=== PATIENT | female | born 1990 | race Caucasian/White ===

== ENCOUNTER 2017-10-08 21:20 | Emergency (ER) | payer BC ==
[~2017-10-08] VITALS: Ht 165.1 cm; Wt 61.0 kg
[~2017-10-08 21:20] MED LIST: PRENTAB26 PO
[2017-10-08 21:31] VITALS: TEMP 36.8; Ht 165.1 cm; Wt 61.0 kg
[2017-10-08 22:10] LABS: URINE APPEARANCE CLEAR (CLEAR); URINE BILIRUBIN NEG (NEG); URINE COLOR YELLOW; URINE EPITHELIAL CELL AUTO >30 /lpf (0-5); URINE NITRITE NEG (NEG); URINE PH 5.5 (4.5-7.5); URINE SPECIFIC GRAVITY 1.026 (1.000-1.030); UROBILINOGEN NEG (NEG); ZZUR CULT IF INDIC CLEAN CATCH YES
[2017-10-08 22:12] LABS: MANUAL MICROSCOPIC REQUIRED? NO; REVIEW REQ? YES
--- NOTE | 2017-10-08 22:15 | EMERGENCY ROOM VISIT NOTE ---
History First contact with patient: 21:33 Chief Complaint: BACK PAIN Stated Complaint: BACK PAIN, KIDNEY PAIN History of Present Illness The patient is a 27 year old female who presents to the Emergency Room with complaints of low back pain 1 month, worsening over the past few days. The patient states that she has had mild, intermittent left lower back pain 1 month. It has been worsening for the past 2 days. She states it is a throbbing pain and rates it an 8/10. The pain has been worsening throughout the day. She states it is worse with all movement as well as standing. Denies any alleviating factors. She does report a history of kidney stones but states this is not similar. 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 She denies any history of back problems. She states the pain is to the left of the lumbar spine. She has had some radiation into the left groin and hip, but none at this time. She denies any numbness or weakness of her lower extremities. She denies any urinary symptoms. She denies any abdominal pain, nausea or vomiting. She has taken ibuprofen intermittently for pain. Review of Systems A complete 10 point review of systems was reviewed with the patient with pertinent positives and negatives as per history of present illness. All else were negative. Past Medical/Surgical History Medical Problems: (1) Social History Smoking Status: Never Smoker Housing Status: lives with family Occupation Status: employed Current/Historical Medications Scheduled Cyclobenzaprine Hcl (Flexeril), 10 MG PO TID Multivit/Min/Iron/Fol Ac/Pren ( Vitamin), 1 TAB PO DAILY Naproxen (Naprosyn), 500 MG PO BID Physical Exam Vital Signs Date Time Temp Pulse Resp B/P (MAP) Pulse Ox O2 Delivery O2 Flow Rate FiO2 10/08/17 23:14 71 18 116/72 98 Room Air 10/08/17 21:31 36.8 89 20 143/83 99 Room Air Physical Exam VITALS: Vitals are noted on the nurse's note and reviewed by myself. Vital signs stable. GENERAL: This is a 27-year-old female, in no acute distress, nondiaphoretic, well-developed well-nourished. SKIN: The skin was without rashes. HEART: Regular rate and rhythm without murmurs gallops or rubs. LUNGS: Clear to auscultation bilaterally without wheezes, rales or rhonchi. ABDOMEN: Positive bowel sounds x 4. Soft, nontender. MUSCULOSKELETAL: There is tenderness to palpation left of the lumbar spine. Full range of motion and strength 5/5 in bilateral lower extremities. NEURO: Patient was alert and oriented to person place and time. Normal sensation to light and sharp touch. Patellar reflexes 2+ bilaterally. Medical Decision & Procedures ER Provider Diagnostic Interpretation: L-SPINE MIN 4 VIEWS ROUTINE FINDINGS: No scoliosis. Straightening of normal lumbar lordosis likely positional. Vertebral bodies maintain normal height and alignment. Intervertebral disc spaces maintained. No pars defects. No radiographic evidence of fracture or subluxation. No gross evidence of osseous neural foraminal narrowing. Nonobstructive bowel gas pattern with moderate stool burden in the right colon. Intrauterine device projects over the pelvis. IMPRESSION: No radiographic evidence of acute osseous injury of the lumbar spine. Laboratory Results Test 10/08/17 21:50 Urine Color YELLOW Urine Appearance CLEAR (CLEAR) Urine pH 5.5 (4.5-7.5) Urine Specific [place] 1.026 (1.000-1.030) Urine Protein NEG (NEG) Urine Glucose (UA) NEG (NEG) Urine Ketones NEG (NEG) Urine Occult Blood 2+ (NEG) Urine Nitrite NEG (NEG) Urine Bilirubin NEG (NEG) Urine Urobilinogen NEG (NEG) Urine Leukocyte Esterase TRACE (NEG) Urine WBC (Auto) 1-5 /hpf (0-5) Urine RBC (Auto) 5-10 /hpf (0-4) Urine Hyaline Casts (Auto) 1-5 /lpf (0-5) Urine Epithelial Cells (Auto) >30 /lpf (0-5) Urine Bacteria (Auto) NEG (NEG) Urine Crystals CALCIUM OXALATE (NONE Urine Yeast (Auto) (NONE PRSENT) Urine Test NEG (NEG) Medications Administered Medications (Trade) Dose Ordered Sig/Ld Route Start Time Stop Time Status Last Admin Dose Admin Cyclobenzaprine HCl (FLEXERIL 10MG Home Pack) 1 homepack UD ONCE PO 10/08/17 23:15 10/08/17 23:16 DC 10/08/17 23:27 1 HOMEPACK Medical Decision Differential diagnosis includes cauda equina syndrome, cord compression, disc herniation, muscle spasm, lumbar strain, epidural abscess, malignancy, transverse myelitis, urinary tract infection, colitis, diverticulitis, kidney stone, among others. The patient is a 27-year-old female who presents today complaining of low back pain worsening over the past one month. Lumbar spine x-rays were performed and were negative. Patient has no radicular symptoms, numbness/weakness or bowel or bladder dysfunction. She is afebrile and has no urinary symptoms. Urine did show some blood, however the patient is due to start her menstrual period. There were some calcium oxalate stones which could represent kidney stones, however patient's pain does not radiate into the abdomen and she has no nausea or vomiting to suggest a stone. I recommended a course of anti-inflammatories and close follow-up with the PCP. If her symptoms worsen or if she would develop vomiting, abdominal pain or urinary symptoms, she was encouraged to return here for evaluation. Conservative measures were discussed. Based on the patient's presentation and work up, I feel the patient is stable for outpatient treatment. The patient was educated to return to the emergency department for any worsening of their current condition or new/concerning symptoms. She will follow up with her PCP. Medication Reconcilliation Current Medication List: was personally reviewed by me Blood Pressure Screening Patient's blood pressure: Normal blood pressure Impression Primary Impression: Lumbar back pain Departure Information Dispostion Home / Self-Care Condition GOOD Prescriptions Naproxen (Naprosyn) 500 Mg Tab 500 MG PO BID for 7 Days, #14 TAB Prov: Montse Davis PA-C 10/08/17 Cyclobenzaprine Hcl (FLEXERIL) 10 Mg Tab 10 MG PO TID for 5 Days, #15 TAB Prov: Montse Davis PA-C 10/08/17 Referrals Nakia Qiu D.O. (PCP) Patient Instructions [facility] Additional Instructions You have been treated in the Emergency Department for Back Pain. You have been prescribed Flexeril (cyclobenzaprine) 1-2 tabs orally, three times per day. Do NOT exceed 30 mg (6 tabs) per day. Take your first dose at bedtime as it can make you drowsy. Always take all medications as prescribed. Naprosyn as prescribed. Take this with some food, as it can cause GI upset. For pain control, you can use the following [id number] medicines (if >12 yo): - Regular strength (325mg/tab) Tylenol (acetaminophen) 2 tabs every 4-6 hours as needed. Do not exceed 12 tablets in a 24 hour period. Avoid taking more than 4 grams (4000 mg) of Tylenol per day. This includes any other sources of acetaminophen you may take on a regular basis. If this is an acute injury, ice can be applied to the area of pain for the first 3 days to help decrease pain and inflammation. After the first 3 days, a heating pad can be used over the area for continued soothing relief. You should schedule a follow-up appointment in 2-3 days with your Primary Care Provider for further evaluation and treatment of your back pain. Return to the Emergency Department if your current symptoms worsen despite treatment course outlined above, or if you develop any of the following symptoms : intractable pain despite aforementioned treatment course, loss of control of your bowel or bladder, numbness or tingling in your groin, or development of a fever.
--- NOTE | 2017-10-08 22:44 | DIAGNOSTIC IMAGING REPORT ---
L-SPINE MIN 4 VIEWS ROUTINE CLINICAL HISTORY: 27 years-old Female presenting with low back pain. TECHNIQUE: Frontal, bilateral oblique, lateral, and coned in lateral views of the lumbar spine were obtained. COMPARISON: CT from 2010. FINDINGS: No scoliosis. Straightening of normal lumbar lordosis likely positional. Vertebral bodies maintain normal height and alignment. Intervertebral disc spaces maintained. No pars defects. No radiographic evidence of fracture or subluxation. No gross evidence of osseous neural foraminal narrowing. Nonobstructive bowel gas pattern with moderate stool burden in the right colon. Intrauterine device projects over the pelvis. IMPRESSION: No radiographic evidence of acute osseous injury of the lumbar spine. Electronically signed by: Olvin Arana M.D. 10/08/2017 10:42 PM Dictated Date/Time: 10/08/2017 10:40 PM
[2017-10-08] MEDS ORDERED: CYCL10TA6 PO (23:09)
[2017-10-08] MEDS ORDERED: NPR500 PO (23:09)
[2017-10-08 23:14] VITALS: BP 116/72; PULSE 71; O2SAT 98
[2017-10-08] MEDS ORDERED: FLEXERIL HOME PACK 10 MG VIAL PO ONE (23:15)
== END 2017-10-08 23:40 | disposition home or self-care (01) ==
LOC: C.EDB 21:21
DX: M54.5 Low back pain (principal); Z87.442 Personal history of urinary calculi